=== PATIENT | female | born 1965 | race Caucasian/White ===

== ENCOUNTER 2018-06-25 22:25 | Emergency (ER) | payer MEDICAID, SELFPAY ==
[~2018-06-25] VITALS: Ht 162.6 cm; Wt 86.6 kg
[2018-06-25 22:59] LABS: BASOPHILS % (AUTO) 1 % (0-1); EOSINOPHILS # (AUTO) 0.06 x10^3/uL (0-0.4); EOSINOPHILS % (AUTO) 1 % (1-7); LYMPHOCYTES % (AUTO) 24 % (22-44); MD NO; MEAN CORPUSCULAR HEMOGLOBIN 31.5 pg (27.0-34.8); MEAN CORPUSCULAR HGB CONC 33.8 g/dL (32.4-35.8); MEAN CORPUSCULAR VOLUME 93.4 fL (80-100); MEAN PLATELET VOLUME 7.2 fL (7.4-10.4); MONOCYTES # (AUTO) 0.75 x10^3/uL (0.2-0.8); MONOCYTES % (AUTO) 7 % (2-9); NEUTROPHILS # (AUTO) 6.83 x10^3/uL (1.8-6.8); NEUTROPHILS % (AUTO) 67 % (42-75); PLATELET COUNT 295 x10^3/uL (130-400); RED BLOOD COUNT 4.33 x10^6/uL (3.82-5.3); RED CELL DISTRIBUTION WIDTH 14.4 % (9.6-15.2)
[2018-06-25] MEDS ORDERED: CHLO100T6 PO (23:00)
[2018-06-25] MEDS ORDERED: LOSA100T7 PO (23:00)
[2018-06-25] MEDS ORDERED: ATOR40TA PO (23:00)
[2018-06-25] MEDS ORDERED: OXCA600T10 PO (23:00)
[2018-06-25] MEDS ORDERED: SENN-66 PO (23:00)
[2018-06-25] MEDS ORDERED: ATEN25TA PO (23:00)
[2018-06-25] MEDS ORDERED: ACETAMINOPHEN 500 MG TABLET PO ONE (23:00)
[2018-06-25] MEDS ORDERED: METF500T17 PO (23:00)
[2018-06-25] MEDS ORDERED: ASPI-496 PO (23:00)
[2018-06-25] MEDS ORDERED: CLOZ100T18 PO (23:00)
[2018-06-25] MEDS ORDERED: LACT10SO PO (23:00)
[2018-06-25] MEDS ORDERED: LAMO200T2 PO (23:00)
[2018-06-25 23:09] LABS: ALANINE AMINOTRANSFERASE 26 U/L (12-78); ALBUMIN 3.5 g/dL (3.4-5.0); ANION GAP 8 mmol/L (5-15); CALCIUM 8.6 mg/dL (8.5-10.1); CHLORIDE 99 mmol/L (98-107); CREATININE 0.86 mg/dL (0.55-1.02)
[2018-06-25] MEDS ORDERED: ACETAMINOPHEN 500 MG TABLET ONE (23:10)
[2018-06-25 23:11] LABS: ALKALINE PHOSPHATASE 83 U/L (45-117); BILIRUBIN,TOTAL 0.3 mg/dL (0.2-1.0); TOTAL PROTEIN 6.8 g/dL (6.4-8.2)
[2018-06-26 00:09] VITALS: BP 162/80
== END 2018-06-26 00:17 | disposition home or self-care (01) ==
LOC: ED 23:41
DX: K64.8 Other hemorrhoids (principal); F20.9 Schizophrenia, unspecified; F17.200 Nicotine dependence, unspecified, uncomplicated; R10.30 Lower abdominal pain, unspecified
CPT/HCPCS: 36415; 80053; 85025; 99283

== ENCOUNTER 2018-09-23 07:53 | Emergency (ER) | payer MEDICAID ==
[~2018-09-23] VITALS: Ht 167.6 cm; Wt 86.0 kg
[~2018-09-23 07:53] MED LIST: ASPI-496 PO; ATEN25TA PO; ATOR40TA PO; CHLO100T6 PO; CLOZ100T18 PO; LACT10SO PO; LAMO200T2 PO; LOSA100T14 PO; METF500T17 PO; OXCA600T10 PO; SENN1TAB59 PO
[2018-09-23 07:56] VITALS: BP 145/84
--- NOTE | 2018-09-23 08:13 | NUR ---
CORRECTION STAFF STATED THAT PT HAS NOT HAD A BM FOR 2 WEEKS. REPORTS PT HAS ABD PAIN. PTS ABD IS SOFT AND NON TENDER. PT IS ALERT AND NORMAL FOR SELF. PT IS CONNECTED TO THE MONITOR. CALL LIGHT WITHIN REACH. CORRECTION STAFF AT BEDSIDE.
--- NOTE | 2018-09-23 08:45 | NUR ---
PT TAKEN TO X RAY.
--- NOTE | 2018-09-23 09:00 | NUR ---
PHONE CALL FROM [facility] HERMINIA HICKS. INFORMED HER OF THE ORDERS THAT HAVE BEEN ENTERED ON THE PT. SHE STATED THAT SHE GIVES CONSENT FOR LABS, X RAY, AND UA. SHE STATED THAT IF ANYTHING ELSE IS ORDERS WE NEED TO CALL HER BACK AND GET CONSENT AT [phone]. PT REFUSED LABS FROM ASSOCIATE PROFESSOR OF PHYSICS AND NURSE. PROVIDER INFORMED OF THE ABOVE. PROVIDER AT BEDSIDE.
--- NOTE | 2018-09-23 09:21 | NUR ---
PT GOT DRESSED AND WENT TO THE BATHROOM. PT REFUSED TO GIVE URINE SAMPLE.
--- NOTE | 2018-09-23 09:55 | NUR ---
VERBAL ORDER FROM PROVIDER: GIVE MAG CITRATE NOW. Addendum: 09/23/18 at 0959 by RAHUL TO TAKE TO GO.
[2018-09-23] MEDS ORDERED: MAGNESIUM CITRATE 300ML ORAL SOL ONE (09:58)
[2018-09-23] MEDS ORDERED: MAGNESIUM CITRATE 300ML ORAL SOL PO ONE (10:00)
--- NOTE | 2018-09-23 10:09 | NUR ---
Patient given discharge instructions and they have confirmed that they understand the instructions. Patient ambulatory with steady gait.
--- NOTE | 2018-09-23 10:09 | NUR ---
PT REFUSED D/C VS.
== END 2018-09-23 10:11 | disposition home or self-care (01) ==
LOC: ED 09:30
DX: R10.84 Generalized abdominal pain (principal); K59.00 Constipation, unspecified; F20.9 Schizophrenia, unspecified
CPT/HCPCS: 74021; 99283

== ENCOUNTER 2018-11-30 09:54 | Emergency (ER) | payer MEDICAID ==
[~2018-11-30] VITALS: Ht 167.6 cm; Wt 85.0 kg
[2018-11-30 10:02] VITALS: BP 159/80
--- NOTE | 2018-11-30 10:14 | NUR ---
PT IN ROOM. PT STATED "THE BED IS TOO HIGH FOR ME." CHAIR PROVIDED. PT SITTING IN CHAIR STATED "I AM CHINIESE" THIS RN ACKNOWLEDGED AND INFORMED PT THAT THAT IS NOT IMPORTANT TO HER CARE. PT MEDICAL HX ATTEMPTED TO OBTAIN. PT STATED "I AM " CAREGIVER DENIES CLAIM. WHEN ASKED ABOUT HER MEDICAL HX RESPONSE WAS "SHE HAS SOME OF EVERYTHING." WHEN ASKED TO ELABORATE THE CAREGIVER WAS UNABLE TO. "I DON'T KNOW BUT HER PSYCHIATRIST IS OVER AT [facility]"
== END 2018-11-30 11:14 | disposition home or self-care (01) ==
LOC: ED 11:08 → MERGE 11:08 → ED 11:14
DX: H10.32 Unspecified acute conjunctivitis, left eye (principal); H00.014 Hordeolum externum left upper eyelid; F17.210 Nicotine dependence, cigarettes, uncomplicated
CPT/HCPCS: 99283

== ENCOUNTER 2018-12-03 11:52 | Emergency (ER) | payer MEDICAID ==
[~2018-12-03] VITALS: Ht 165.1 cm; Wt 85.4 kg
[2018-12-03 12:00] VITALS: BP 187/86
--- NOTE | 2018-12-03 12:41 | NUR ---
Feet scrubbed clean with soap and water.
--- NOTE | 2018-12-03 12:59 | NUR ---
Discharge instructions discussed with patient and caregiver, verbalize understanding. Prescription provided.
== END 2018-12-03 13:02 | disposition home or self-care (01) ==
LOC: ED 12:51
DX: B35.3 Tinea pedis (principal); E11.9 Type 2 diabetes mellitus without complications; F17.200 Nicotine dependence, unspecified, uncomplicated; I10 Essential (primary) hypertension
CPT/HCPCS: 99283

== ENCOUNTER 2020-01-02 10:38 | Inpatient (IN) | payer MEDICAID ==
[~2020-01-02] VITALS: Ht 172.7 cm; Wt 78.3 kg
[~2020-01-02 10:38] MED LIST changes: -LAMO200T2 PO; +LAMO200T6 PO
--- NOTE | 2020-01-02 12:23 | NUR ---
TASK RN: SPOKE TO [facility]ATCH, PT PICKED UP FROM [id number] [facility], ELIDA DEMARCO, PHONE # [phone]
--- NOTE | 2020-01-02 12:32 | NUR ---
TASK RN: SPOKE TO VINAYAK VEE, CARE CORDINATOR. DISCUSSED PT TO BE DISCHARGED AND HOW TO TRANSPORT PT BACK TO CARE FACILITY. VINAYAK ASKING ABOUT SODIUM LEVEL AND CLOZARIL LEVEL R/T "THIS HAS HAPPENED IN THE PAST AND HER SODIUM HAS BEEN LOW. SHE HAS BEEN DROOLING, LETHARGIC, EYES ROLLING IN THE BACK OF HER HEAD" DISCUSSED THAT IT WOULD BE HELPFUL IF CARE FACILITY WOULD CALL THE ED AND NOTIFY OF REASON OF TRANSPORT ALL INFORMATION IS NOT ALWAYS RELAYED. DISCUSSED THAT I WOULD DISCUSS THIS INFORMATION WITH ED MD. ALSO REQUESTED INFORMATION ON HOW TO TRANSPORT PT BACK TO CARE FACILITY. WAS TOLD "WILL GET BACK TO YOU" INFORMATION DISCUSSED WITH DR MARROQUIN. LABS ORDERED.
--- NOTE | 2020-01-02 12:41 | NUR ---
TASK RN: CARE FACILITY CALLED BACK AND ASKED "SHOULD I COME AND GET HER" DISCUSSED THAT LABS CARE FACILITY REQUESTED WOULD BE DRAWN AND WE WILL CALL THEM WHEN FURTHER DISPOSITION IS DETERMINED. PT PROVIDED WITH MEAL TRAY.
--- NOTE | 2020-01-02 12:51 | NUR ---
TASK RN: REPORT TO ZULEIKA MANRIQUE
[2020-01-02 14:40] LABS: BASOPHILS # (AUTO) 0.02 x10^3/uL (0-0.1); BASOPHILS % (AUTO) 0 % (0-1); EOSINOPHILS # (AUTO) 0.02 x10^3/uL (0-0.4); EOSINOPHILS % (AUTO) 0 % (1-7); LYMPHOCYTES # (AUTO) 1.38 x10^3/uL (1-3.4); LYMPHOCYTES % (AUTO) 22 % (22-44); MD NO; MEAN CORPUSCULAR HEMOGLOBIN 31.7 pg (27.0-34.8); MEAN CORPUSCULAR HGB CONC 33.7 g/dL (32.4-35.8); MEAN CORPUSCULAR VOLUME 94.1 fL (80-100); MEAN PLATELET VOLUME 8.8 fL (7.4-10.4); MONOCYTES # (AUTO) 0.46 x10^3/uL (0.2-0.8); MONOCYTES % (AUTO) 7 % (2-9); NEUTROPHILS # (AUTO) 4.29 x10^3/uL (1.8-6.8); NEUTROPHILS % (AUTO) 70 % (42-75); PLATELET COUNT 233 x10^3/uL (130-400); RED BLOOD COUNT 4.33 x10^6/uL (3.82-5.3)
[2020-01-02 14:53] LABS: ALANINE AMINOTRANSFERASE 29 U/L (12-78); ALBUMIN 3.5 g/dL (3.4-5.0); ANION GAP 7 mmol/L (5-15); CALCIUM 8.1 mg/dL (8.5-10.1); CHLORIDE 93 mmol/L (98-107); CREATININE 0.62 mg/dL (0.55-1.02)
[2020-01-02 14:55] LABS: ALKALINE PHOSPHATASE 74 U/L (45-117); BILIRUBIN,TOTAL 0.3 mg/dL (0.2-1.0); TOTAL PROTEIN 6.8 g/dL (6.4-8.2)
[2020-01-02] MEDS ORDERED: ENALAPRILAT 1.25 MG/ML, 2ML IV PRN (15:00)
[2020-01-02] MEDS ORDERED: ONDANSETRON 2MG/ML, 2ML IVPush PRN (15:00)
[2020-01-02] MEDS ORDERED: DOCUSATE 100 MG CAPSULE PO PRN (15:00)
[2020-01-02] MEDS ORDERED: POLYETHYLENE GLYCOL 17 GM PACKET PO PRN (15:00)
[2020-01-02] MEDS: NICOTINE 21 MG/24 HR PATCH.TD24 TD SCH (15:00)
[2020-01-02] MEDS ORDERED: ACETAMINOPHEN 325 MG TABLET PO PRN (15:00)
[2020-01-02] MEDS ORDERED: LABETALOL 5MG/ML, 20ML IVPush PRN (15:00)
[2020-01-02] MEDS: ENOXAPARIN 40 MG/0.4 ML SQ SCH (15:00)
[2020-01-02] MEDS ORDERED: ONDANSETRON ODT 4 MG PO PRN (15:00)
[2020-01-02] MEDS: SODIUM CHLORIDE 0.9% 1,000 ML IV SCH (15:47)
[2020-01-02 15:52] VITALS: BP 154/74
[2020-01-02 16:31] LABS: AMPHETAMINE SCREEN, URINE Negative (Negative); BARBITURATE SCREEN, URINE Negative (Negative); BENZODIAZEPINE SCREEN, URINE Negative (Negative); CANNABINOID SCREEN, URINE Negative (Negative); COCAINE SCREEN, URINE Negative (Negative); METHADONE SCREEN, URINE Negative (Negative); OPIATE SCREEN, URINE Negative (Negative); SODIUM,URINE RANDOM 90 mmol/L
[2020-01-02 19:01] VITALS: BP 167/76
[2020-01-02 22:25] LABS: MICROSCOPIC NOT IND
[2020-01-03 00:27] VITALS: BP 149/88
[2020-01-03 07:07] VITALS: BP 132/90
[2020-01-03 09:14] LABS: ANION GAP 8 mmol/L (5-15); CALCIUM 9.2 mg/dL (8.5-10.1); CHLORIDE 94 mmol/L (98-107); CREATININE 0.83 mg/dL (0.55-1.02)
[2020-01-03] MEDS: SODIUM CHLORIDE 0.9% 1,000 ML IV SCH (10:40)
[2020-01-03] MEDS ORDERED: CHLO200T2 PO (12:24)
[2020-01-03 13:51] VITALS: BP 149/89
[2020-01-03] MEDS ORDERED: LORA2TAB99 PO (14:42)
[2020-01-03] MEDS ORDERED: LISI-420 PO (14:42)
[2020-01-03] MEDS ORDERED: CLOZ200T PO ×2 (14:42)
[2020-01-03] MEDS ORDERED: PEG1POWD PO (14:42)
[2020-01-03] MEDS ORDERED: METF10007 PO (14:42)
[2020-01-03] MEDS ORDERED: OXYB5TAB10 PO (14:42)
[2020-01-03 14:48] LABS: ANION GAP 9 mmol/L (5-15); CALCIUM 8.9 mg/dL (8.5-10.1); CHLORIDE 92 mmol/L (98-107)
[2020-01-03] MEDS: ENOXAPARIN 40 MG/0.4 ML SQ SCH (15:00)
[2020-01-03] MEDS: LAMOTRIGINE 200 MG TABLET PO SCH (16:20)
[2020-01-03] MEDS: metFORMIN 500 MG TABLET PO SCH (16:20)
[2020-01-03] MEDS: LISINOPRIL 20 MG TABLET PO SCH (16:20)
[2020-01-03] MEDS: NICOTINE 21 MG/24 HR PATCH.TD24 TD SCH (16:20)
[2020-01-03 19:50] VITALS: BP 134/84
[2020-01-03] MEDS ORDERED: CHLORPROMAZINE PO SCH (21:00)
[2020-01-03] MEDS: CHLORPROMAZINE 100MG TAB PO SCH (21:11)
[2020-01-04 02:20] VITALS: BP 150/84
[2020-01-04] MEDS: SODIUM CHLORIDE 0.9% 1,000 ML IV SCH (05:18)
[2020-01-04 07:36] VITALS: BP 136/81
[2020-01-04] MEDS: LAMOTRIGINE 200 MG TABLET PO SCH (07:58)
[2020-01-04] MEDS: metFORMIN 500 MG TABLET PO SCH ×2 (07:59→16:34)
[2020-01-04] MEDS: SENNA/DOCUSATE TABLET PO SCH (07:59)
[2020-01-04] MEDS: LISINOPRIL 20 MG TABLET PO SCH (07:59)
[2020-01-04 14:58] VITALS: BP 139/83
[2020-01-04] MEDS: ENOXAPARIN 40 MG/0.4 ML SQ SCH (15:00)
[2020-01-04] MEDS: NICOTINE 21 MG/24 HR PATCH.TD24 TD SCH (16:35)
[2020-01-04] MEDS: SODIUM CHLORIDE 1 GM TABLET PO SCH (21:14)
[2020-01-04] MEDS: CHLORPROMAZINE 100MG TAB PO SCH (21:14)
[2020-01-05 07:52] VITALS: BP 121/79
[2020-01-05 07:52] LABS: ANION GAP 9 mmol/L (5-15); CHLORIDE 104 mmol/L (98-107); CREATININE 0.77 mg/dL (0.55-1.02)
[2020-01-05] MEDS: SENNA/DOCUSATE TABLET PO SCH (09:00)
[2020-01-05] MEDS: LAMOTRIGINE 200 MG TABLET PO SCH (09:06)
[2020-01-05] MEDS: metFORMIN 500 MG TABLET PO SCH (09:07)
[2020-01-05] MEDS: SODIUM CHLORIDE 1 GM TABLET PO SCH (09:07)
[2020-01-05] MEDS: LISINOPRIL 20 MG TABLET PO SCH (09:07)
[2020-01-05] MEDS ORDERED: CHLO100T6 PO (10:36)
[2020-01-05] MEDS ORDERED: CLOZ100T18 PO (10:36)
[2020-01-05] MEDS ORDERED: OXCA300T3 PO (10:36)
== END 2020-01-05 11:03 | disposition home or self-care (01) | DRG 426 ==
LOC: ED 12:27 → EDIP 12:51 → 3N 15:25
PROVIDERS: ADMIT Family Medicine; ATTEND Family Medicine
DX: E87.1 Hypo-osmolality and hyponatremia (principal); G93.41 Metabolic encephalopathy; E78.5 Hyperlipidemia, unspecified; F25.9 Schizoaffective disorder, unspecified; E11.9 Type 2 diabetes mellitus without complications; F17.210 Nicotine dependence, cigarettes, uncomplicated; F31.9 Bipolar disorder, unspecified; Z20.828 Contact with and (suspected) exposure to other viral communicable diseases; I10 Essential (primary) hypertension; Z79.84 Long term (current) use of oral hypoglycemic drugs; Z79.899 Other long term (current) drug therapy
CPT/HCPCS: 36415; 70450; 80047; 80048; 80053; 80159; 80307; 81003; 83036; 83735; 83935; 84300; 85025; 87635; 99285; G0378; J7030

== ENCOUNTER 2021-02-25 21:11 | Emergency (ER) | payer MEDICAID ==
[~2021-02-25] VITALS: Ht 165.1 cm; Wt 80.0 kg
[~2021-02-25 21:11] MED LIST changes: +CHLO200T2 PO; +CLOZ200T PO; +LISI20TA21 PO; +LORA2TAB99 PO; +METF10007 PO; +OXCA300T3 PO; +OXYB5TAB10 PO; +PEG1POWD PO
[2021-02-25 21:14] VITALS: BP 114/88
[2021-02-25] MEDS ORDERED: HALOPERIDOL 5 MG/ML ONE (21:28)
[2021-02-25] MEDS ORDERED: HALOPERIDOL 5 MG/ML IM ONE (21:30)
--- NOTE | 2021-02-25 21:33 | NUR ---
Pt brought in by PETER on L2K for erratic behavior while at the residential being processed. Pt denies any past medical hx, denies any active complaints. Pt denies SI, HI, drug or alcohol use. Pt states she smokes cigarettes. Pt denies any psych history. Pt very erratic, denies auditory or visual hallucinations, however does not make eye contact reguarly, hard to re-direct, has periods of being verbally aggressive. Not physically aggressive at this time. Pt non compliant with therapy so far. Refusing blood work, urine sample, etc. Given 5mg Im Haldol to help facilitate active participation in medical clearence/care. Pt belongings labeled and secured at bedside at this time. No sharp objects, weapons, or medications noted. Pt is alert and oriented x3, GCS 14, in no acute distress, maintaining airway.
--- NOTE | 2021-02-25 22:08 | NUR ---
Pt pacing around room, hard to re-direct, talking about white and black people. Stating that she smokes cigarettes just like her momma. Pt talking to herself, rambling, no concrete-thinking. Word salad at time. Hx remarkable for Schizophrenia. Pt not aggressive at this time.
--- NOTE | 2021-02-25 22:25 | NUR ---
Labs sent at this time. Pt cooperative with straight stick phelobotomy. Will continue to encourage pt to provide urine sample.
[2021-02-25 22:37] LABS: BASOPHILS % (AUTO) 1 % (0-1); EOSINOPHILS % (AUTO) 1 % (1-7); LYMPHOCYTES % (AUTO) 31 % (22-44); MEAN CORPUSCULAR HEMOGLOBIN 30.6 pg (27.0-34.8); MEAN CORPUSCULAR HGB CONC 33.5 g/dL (32.4-35.8); MEAN PLATELET VOLUME 8.2 fL (7.4-10.4); MONOCYTES % (AUTO) 9 % (2-9); NEUTROPHILS % (AUTO) 59 % (42-75); PLATELET COUNT 261 x10^3/uL (130-400); RED BLOOD COUNT 4.67 x10^6/uL (3.82-5.3); RED CELL DISTRIBUTION WIDTH 14.2 % (9.6-15.2)
[2021-02-25 22:42] LABS: ALBUMIN 3.6 g/dL (3.4-5.0); ANION GAP 6 mmol/L (5-15); CALCIUM 8.5 mg/dL (8.5-10.1); CHLORIDE 109 mmol/L (98-107); SALICYLATE LEVEL 4.3 mg/dL (2.8-20.0)
[2021-02-25 22:54] LABS: ALANINE AMINOTRANSFERASE 25 U/L (12-78); ALKALINE PHOSPHATASE 87 U/L (45-117); BILIRUBIN,TOTAL 0.5 mg/dL (0.2-1.0); CREATININE 0.67 mg/dL (0.55-1.02); TOTAL PROTEIN 7.5 g/dL (6.4-8.2)
--- NOTE | 2021-02-25 23:00 | NUR ---
Sitter at bedside.
[2021-02-25 23:13] LABS: FREE T4 (FREE THYROXINE) 1.28 ng/dL (0.76-1.46)
--- NOTE | 2021-02-26 00:29 | NUR ---
Pt provided w/ juice, water and crackers. Encouraged to provide a urine sample.
--- NOTE | 2021-02-26 01:36 | NUR ---
Urine sent to lab at this time. Pt able to ambulate independently to provide urine sample. Back in bed. Sitter at bedside.
[2021-02-26 01:53] LABS: AMPHETAMINE SCREEN, URINE Negative (Negative); BARBITURATE SCREEN, URINE Negative (Negative); BENZODIAZEPINE SCREEN, URINE Negative (Negative); CANNABINOID SCREEN, URINE Negative (Negative); COCAINE SCREEN, URINE Negative (Negative); METHADONE SCREEN, URINE Negative (Negative); OPIATE SCREEN, URINE Negative (Negative)
--- NOTE | 2021-02-26 02:00 | NUR ---
Pt resting comfortably at this time. Denies needs. Sitter at bedside, in clear line of sight of patient.
--- NOTE | 2021-02-26 02:23 | NUR ---
Patient medically cleared. Chart faxed to [facility] waiting acceptance
--- NOTE | 2021-02-26 02:45 | NUR ---
Pt provided with sandwich, juice, water. Denies further needs
--- NOTE | 2021-02-26 02:58 | NUR ---
[facility] accepted pending COVID
--- NOTE | 2021-02-26 03:54 | NUR ---
MANDY swab walked to lab at this time
--- NOTE | 2021-02-26 04:00 | NUR ---
Pt resting comfortably at this time. Denies needs. Sitter at bedside, in clear line of sight of patient.
--- NOTE | 2021-02-26 05:00 | NUR ---
Pt resting comfortably at this time. Denies needs. Sitter at bedside, in clear line of sight of patient.
--- NOTE | 2021-02-26 05:15 | NUR ---
Report given to BLAKE RN no further questions at this time.
== END 2021-02-26 05:15 ==
LOC: ED 21:31 → EDIP 02-26 01:34 → UNDOADMOB 02-26 01:34 → EDIP 02-26 01:57 → ED 02-26 05:15
DX: R45.851 Suicidal ideations (principal); Z20.822 Contact with and (suspected) exposure to COVID-19; F20.0 Paranoid schizophrenia; F17.210 Nicotine dependence, cigarettes, uncomplicated
CPT/HCPCS: 36415; 80053; 80299; 80307; 80320; 80329; 84439; 84443; 85025; 87426; 96372; 99285; 99406; J1630; G0480

== ENCOUNTER 2021-02-26 03:14 | Inpatient (IN) | payer MEDICAID ==
[~2021-02-26] VITALS: Ht 162.6 cm; Wt 80.0 kg
[2021-02-26] MEDS ORDERED: DOCUSATE 100 MG CAPSULE PO PRN (05:00)
[2021-02-26] MEDS ORDERED: POLYETHYLENE GLYCOL 17 GM PACKET PO PRN (05:00)
[2021-02-26] MEDS ORDERED: ACETAMINOPHEN 325 MG TABLET PO PRN (05:00)
[2021-02-26] MEDS ORDERED: BISACODYL 10 MG SUPP PR PRN (05:00)
[2021-02-26] MEDS ORDERED: ZIPRASIDONE 20MG CAPSULE PO PRN (05:00)
[2021-02-26] MEDS ORDERED: ONDANSETRON ODT 4 MG PO PRN (05:00)
[2021-02-26 05:57] VITALS: BP 145/88
[2021-02-26 07:24] VITALS: BP 155/89
[2021-02-26] MEDS ORDERED: NICOTINE 14MG/24 HR PATCH.TD24 TD ONE (09:00)
[2021-02-26] MEDS: DIVALPROEX 500 MG TABLET.DR PO SCH ×2 (16:05→20:17)
[2021-02-26] MEDS: metFORMIN 500 MG TABLET PO SCH (16:05)
[2021-02-26 16:18] LABS: MICROSCOPIC NOT IND
[2021-02-27 07:17] VITALS: BP 132/85
[2021-02-27] MEDS: DIVALPROEX 500 MG TABLET.DR PO SCH ×2 (08:37→20:22)
[2021-02-27] MEDS: LISINOPRIL 20 MG TABLET PO SCH (08:37)
[2021-02-27] MEDS: metFORMIN 500 MG TABLET PO SCH ×2 (08:38→17:26)
[2021-02-27] MEDS: POTASSIUM CHLORIDE 20 MEQ TAB.ER.PRT PO ONE ×2 (13:30→14:06)
[2021-02-27] MEDS: OLANZAPINE 10 MG TABLET PO SCH (20:22)
[2021-02-28 07:18] VITALS: BP 113/78
[2021-02-28] MEDS: OLANZAPINE 10 MG TABLET PO SCH ×2 (08:11→20:55)
[2021-02-28] MEDS: DIVALPROEX 500 MG TABLET.DR PO SCH ×2 (08:12→20:55)
[2021-02-28] MEDS: metFORMIN 500 MG TABLET PO SCH ×2 (08:12→17:21)
[2021-02-28] MEDS: LISINOPRIL 20 MG TABLET PO SCH (08:13)
[2021-02-28] MEDS ORDERED: DIVA-61 PO (13:40)
[2021-03-01] MEDS: metFORMIN 500 MG TABLET PO SCH (07:26)
[2021-03-01 07:43] VITALS: BP 125/78
[2021-03-01] MEDS: OLANZAPINE 10 MG TABLET PO SCH (08:23)
[2021-03-01] MEDS: DIVALPROEX 500 MG TABLET.DR PO SCH (08:23)
[2021-03-01] MEDS: LISINOPRIL 20 MG TABLET PO SCH (08:23)
== END 2021-03-01 08:35 | disposition home or self-care (01) | DRG 885 ==
LOC: 3E 05:38
PROVIDERS: ADMIT Psychiatry & Neurology Psychosomatic Medicine; ATTEND Psychiatry & Neurology Psychosomatic Medicine
DX: F20.0 Paranoid schizophrenia (principal); E11.9 Type 2 diabetes mellitus without complications; I10 Essential (primary) hypertension; E78.5 Hyperlipidemia, unspecified; F17.210 Nicotine dependence, cigarettes, uncomplicated; E87.6 Hypokalemia; K59.00 Constipation, unspecified; Z79.899 Other long term (current) drug therapy; Z71.6 Tobacco abuse counseling; Z79.84 Long term (current) use of oral hypoglycemic drugs
CPT/HCPCS: 71045; 81003; 93005; 99285; Q0161